=== PATIENT | male | born 1940 | race Caucasian/White ===

== ENCOUNTER 2018-12-19 10:45 | Emergency (ER) | payer MEDICARE ==
[~2018-12-19] VITALS: Ht 175.3 cm; Wt 74.4 kg
[2018-12-19] MEDS ORDERED: MEMA10TA22 (11:52)
[2018-12-19] MEDS ORDERED: DONE10TA41 (11:52)
[2018-12-19] MEDS ORDERED: FLUO20CA25 (11:52)
[2018-12-19] MEDS ORDERED: LOVA40TA2 (11:52)
[2018-12-19 11:54] LABS: ALANINE AMINOTRANSFERASE 12 U/L (0-55); ALKALINE PHOSPHATASE 95 U/L (40-136); BILIRUBIN,TOTAL 0.4 MG/DL (0.1-1.0); BUN/CREATININE RATIO 21; CALCIUM 8.8 MG/DL (8.5-10.1); CARBON DIOXIDE 22 MMOL/L (21-32); CHLORIDE 101 MMOL/L (98-107); CREATININE SERUM 1.07 MG/DL (0.60-1.30); GFR ESTIMATED > 60; GLUCOSE 225 MG/DL (70-105); POTASSIUM 4.4 MMOL/L (3.6-5.0); SODIUM 139 MMOL/L (135-145); TOTAL PROTEIN 7.2 GM/DL (6.4-8.2)
--- NOTE | 2018-12-19 11:54 | Diagnostic Imaging Report ---
PROCEDURE: CT head without contrast. TECHNIQUE: Multiple contiguous axial images were obtained through the brain without the use of intravenous contrast. INDICATION: Lethargy. No prior studies are available for comparison. The ventricles and sulci are prominent consistent with patient's age. No sulcal effacement is identified. 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 No midline shift is seen. No acute intra-axial or extra-axial hemorrhage is identified. Mild generalized periventricular hypodensity is noted consistent with senescent change. The cisterns are patent. The visualized paranasal sinuses are clear. IMPRESSION: Chronic and senescent changes. No acute intracranial process is detected. Dictated by: Dictated on workstation # [id number]
[2018-12-19 11:55] LABS: ALBUMIN 4.1 GM/DL (3.2-4.5)
--- NOTE | 2018-12-19 11:59 | Diagnostic Imaging Report ---
INDICATION: Lethargic. TECHNIQUE: Single-view chest at 11:29 a.m. CORRELATION STUDY: None. FINDINGS: Post sternotomy changes. Cardiac enlargement. Vasculature overall is increased. No definitive consolidating infiltrate. Likely minimal atelectasis in left costophrenic angle. Thoracic spine stimulator leads present. IMPRESSION: 1. Cardiac enlargement and mild vascular congestion present. Post sternotomy changes. Dictated by: Dictated on workstation # [id number]
[2018-12-19] MEDS ORDERED: OSELTAMIVIR 75 MG (TAMIFLU) CAPSULE PO ONE (12:00)
[2018-12-19 12:16] LABS: BASOPHILS % (AUTO) 0 % (0-10); EOSINOPHILS % (AUTO) 2 % (0-10); HEMATOCRIT 40 % (40-54); HEMOGLOBIN 13.2 G/DL (13.3-17.7); LYMPHOCYTES % (AUTO) 3 % (12-44); MEAN CORPUSCULAR HEMOGLOBIN 29 PG (25-34); MEAN CORPUSCULAR HGB CONC 33 G/DL (32-36); MEAN CORPUSCULAR VOLUME 89 FL (80-99); MEAN PLATELET VOLUME 10.5 FL (7.4-10.4); MONOCYTES % (AUTO) 5 % (0-12); NEUTROPHILS % (AUTO) 90 % (42-75); PLATELET COUNT 216 10^3/uL (130-400); RED CELL DISTRIBUTION WIDTH 12.7 % (10.0-14.5); WHITE BLOOD COUNT 12.4 10^3/uL (4.3-11.0)
[2018-12-19 12:17] LABS: EOSINOPHILS # (AUTO) 0.2 10^3/uL (0.0-0.3); LYMPHOCYTES # (AUTO) 0.3 X 10^3 (1.0-4.0); MONOCYTES # (AUTO) 0.7 X 10^3 (0.0-1.0); NEUTROPHILS # (AUTO) 11.1 X 10^3 (1.8-7.8)
[2018-12-19 12:18] LABS: BAND NEUTROPHILS 12 %; EOSINOPHILS % (MANUAL) 1 %; LYMPHOCYTES % (MANUAL) 4 %; MONOCYTES % (MANUAL) 9 %; NEUTROPHILS % (MANUAL) 74 %
[2018-12-19 12:22] LABS: CLARITY,URINE CLEAR; COLOR,URINE YELLOW
[2018-12-19 12:23] LABS: BILIRUBIN,URINE NEGATIVE (NEGATIVE); GLUCOSE, URINE (UA) TRACE (NEGATIVE); KETONES,URINE NEGATIVE (NEGATIVE); LEUKOCYTE ESTERASE ,URINE NEGATIVE (NEGATIVE); NITRITE,URINE NEGATIVE (NEGATIVE); PH,URINE 6.5 (5-9); PROTEIN,URINE 1+ (NEGATIVE); UROBILINOGEN,URINE 0.2 MG/DL (NORMAL)
--- NOTE | 2018-12-19 13:21 | ED Cough/URI ---
General Chief Complaint: Fever-Adult/Adol Stated Complaint: LETHARGY Nursing Triage Note: Pt to ED via EMS. Pt accompanied by . Pt unable to answer questions or follow commands at time of assessment. 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 reports pt has increased confusion and lethargy since yesterday. reports pt began running fever, developed cough and sore throat yesterday. was concerned pt's blood sugar was low so called EMS. EMS reports blood sugar of 186 enroute. Pt does not wear O2 at home. Pt arrived on 4 L NC, O2 sat 97%. Sepsis Screen: Possible Severe Sepsis Risk Source: patient, family Exam Limitations: other (cognitive impairment) History of Present Illness Date Seen by Provider: Dec 19, 2018 Time Seen by Provider: 11:00 Initial Comments 78-year-old male with history of dementia lives at home with spouse who presents with altered mental status increased confusion, generalized weakness and temperature 100.7. Symptom onset been over the past 12 hours. Reports occasional cough, no chills, nausea vomiting, sweats, retractions or wheezes. No abdominal pain, bowel diarrhea. No other acute symptoms or complaints. History is obtained from patient's spouse. History Limited to the patient's memory impairment Timing/Duration: yesterday Severity/Quality: dry cough Prior Episodes/Possible Cause: no prior episodes Modifying Factors: Improves With Rest Associated Symptoms: cough, fever/chills, muscle aches, shortness of breath Allergies and Home Medications Allergies Coded Allergies: No Known Drug Allergies (Unverified , 12/19/18) Patient Home Medication List Home Medication List Reviewed: Yes Review of Systems Review of Systems Constitutional: no symptoms reported EENTM: no symptoms reported Respiratory: no symptoms reported Cardiovascular: no symptoms reported Gastrointestinal: no symptoms reported Genitourinary: no symptoms reported Musculoskeletal: no symptoms reported Skin: no symptoms reported (HPI limited due to dementia) Psychiatric/Neurological: No Symptoms Reported Hematologic/Lymphatic: No Symptoms Reported All Other Systems Reviewed Negative Unless Noted: Yes Past Iukyntx-Oqobhw-Pofnjp Hx Past Med/Social Hx: Reviewed Nursing Past Med/Soc Hx Patient Social History Alcohol Use: Denies Use Recreational Drug Use: No Recent Foreign Travel: No Contact w/Someone Who Travel: No Recent Infectious Disease Expo: No Physical Abuse: No Sexual Abuse: No Past Medical History Surgeries: Yes Gallbladder, Orthopedic Respiratory: No Cardiac: Yes High Cholesterol Neurological: Yes Dementia Genitourinary: No Gastrointestinal: No Musculoskeletal: No Endocrine: Yes Diabetes, Non-Insulin dep Cancer: No Psychosocial: Yes Depression Integumentary: No Blood Disorders: No Physical Exam Vital Signs - First Documented 12/19/18 10:45 Temp 100.7 Pulse 98 Resp 15 B/P (MAP) 144/65 (91) Pulse Ox 98 O2 Delivery Room Air Capillary Refill : Less Than 3 Seconds Height: 5'9.00" Weight: 164lbs. oz. [id number]; BMI Method:Stated General Appearance: no apparent distress HEENT: PERRL/EOMI, normal ENT inspection, TMs normal, pharynx normal Neck: non-tender, supple Respiratory: chest non-tender, lungs clear, normal breath sounds, no respiratory distress Cardiovascular: normal peripheral pulses, regular rate, rhythm, no edema Gastrointestinal: normal bowel sounds Extremities: normal range of motion, normal inspection Neurologic/Psychiatric: signal wirer II-XII nml as tested, no motor/sensory deficits, alert, normal mood/affect, abnormal signal wirer II-XII; No motor weakness, No sensory deficit; disoriented x 3 Skin: normal color Focused Exam Sepsis Stage: Ruled Out Lactate Level 12/19/18 10:50: Lactic Acid Level 1.05 Lactic Acid Level Laboratory Tests Test 12/19/18 10:50 Lactic Acid Level 1.05 MMOL/L (0.50-2.00) Progress/Results/Core Measures Suspected Sepsis Recent Fever Within 48 Hours: Yes Infection Criteria Present: Suspected New Infection New/Unexplained Altered Menta: Yes Sepsis Screen: Possible Severe Sepsis Risk SIRS Temperature:100.7 Pulse: 98 Respiratory Rate: 15 Laboratory Tests 12/19/18 10:50: White Blood Count 12.4H Blood Pressure 144 /65 Mean: 91 12/19/18 10:50: Lactic Acid Level 1.05 Laboratory Tests 12/19/18 10:50: Creatinine 1.07, Platelet Count 216, Total Bilirubin 0.4 Results/Orders Lab Results Laboratory Tests Test 12/19/18 10:50 12/19/18 12:10 Range/Units White Blood Count 12.4 H 4.3-11.0 10^3/uL Red Blood Count 4.53 4.35-5.85 10^6/uL Hemoglobin 13.2 L 13.3-17.7 G/DL Hematocrit 40 40-54 % Mean Corpuscular Volume 89 80-99 FL Mean Corpuscular Hemoglobin 29 25-34 PG Mean Corpuscular Hemoglobin Concent 33 32-36 G/DL Red Cell Distribution Width 12.7 10.0-14.5 % Platelet Count 216 130-400 10^3/uL Mean Platelet Volume 10.5 H 7.4-10.4 FL Neutrophils (%) (Auto) 90 H 42-75 % Lymphocytes (%) (Auto) 3 L 12-44 % Monocytes (%) (Auto) 5 0-12 % Eosinophils (%) (Auto) 2 0-10 % Basophils (%) (Auto) 0 0-10 % Neutrophils # (Auto) 11.1 H 1.8-7.8 X 10^3 Lymphocytes # (Auto) 0.3 L 1.0-4.0 X 10^3 Monocytes # (Auto) 0.7 0.0-1.0 X 10^3 Eosinophils # (Auto) 0.2 0.0-0.3 10^3/uL Basophils # (Auto) 0.0 0.0-0.1 10^3/uL Neutrophils % (Manual) 74 % Lymphocytes % (Manual) 4 % Monocytes % (Manual) 9 % Eosinophils % (Manual) 1 % Band Neutrophils 12 % Sodium Level 139 135-145 MMOL/L Potassium Level 4.4 3.6-5.0 MMOL/L Chloride Level 101 98-107 MMOL/L Carbon Dioxide Level 22 21-32 MMOL/L Anion Gap 16 H 5-14 MMOL/L Blood Urea Nitrogen 23 H 7-18 MG/DL Creatinine 1.07 0.60-1.30 MG/DL Estimat Glomerular Filtration Rate > 60 BUN/Creatinine Ratio 21 Glucose Level 225 H 70-105 MG/DL Lactic Acid Level 1.05 0.50-2.00 MMOL/L Calcium Level 8.8 8.5-10.1 MG/DL Corrected Calcium 8.7 8.5-10.1 MG/DL Total Bilirubin 0.4 0.1-1.0 MG/DL Aspartate Amino Transf (AST/SGOT) 18 5-34 U/L Alanine Aminotransferase (ALT/SGPT) 12 0-55 U/L Alkaline Phosphatase 95 40-136 U/L Total Protein 7.2 6.4-8.2 GM/DL Albumin 4.1 3.2-4.5 GM/DL Urine Color YELLOW Urine Clarity CLEAR Urine pH 6.5 5-9 Urine Specific [place] 1.015 L 1.016-1.022 Urine Protein 1+ H NEGATIVE Urine Glucose (UA) TRACE H NEGATIVE Urine Ketones NEGATIVE NEGATIVE Urine Nitrite NEGATIVE NEGATIVE Urine Bilirubin NEGATIVE NEGATIVE Urine Urobilinogen 0.2 NORMAL MG/DL Urine Leukocyte Esterase NEGATIVE NEGATIVE Urine RBC (Auto) TRACE-I NEGATIVE Micro Results Microbiology 12/19/18 Influenza Types A,B Antigen (ZULEYMA) - Final, Complete My Orders Orders - ALIYAH SHINE DO Cbc With Automated Diff (12/19/18 11:09) Comprehensive Metabolic Panel (12/19/18 11:09) Blood Culture (12/19/18 11:09) Lactic Acid Analyzer (12/19/18 11:09) Chest 1 View Ap/Pa Only (12/19/18 11:09) Influenza A And B Antigens (12/19/18 11:09) Urinalysis Dipstick Only (12/19/18 11:09) Blood Culture (12/19/18 11:10) Glucose (12/19/18 11:09) Accucheck Fasting (12/19/18 11:09) Ct Head Wo (12/19/18 11:09) Oseltamivir 75 Mg Capsule (Tamiflu 75 (12/19/18 12:00) Manual Differential (12/19/18 10:50) Medications Given in ED Current Medications Medications Dose Ordered Sig/Kelvin Route Start Time Stop Time Status Last Admin Dose Admin Oseltamivir Phosphate 75 mg ONCE ONCE PO 12/19/18 12:00 12/19/18 12:01 DC 12/19/18 12:27 75 MG Vital Signs/I&O 12/19/18 10:45 Temp 100.7 Pulse 98 Resp 15 B/P (MAP) 144/65 (91) Pulse Ox 98 O2 Delivery Room Air Capillary Refill : Less Than 3 Seconds Blood Pressure Mean: 91 Progress Note : Time: 13:23 Progress Note Influ A+, no resp compromise tamiflu given. Recommend supportive care and transfer to local hospital for further care. Dr. Delacruz on-call for hospitalist accepts to [facility] ECG Initial ECG Impression Date: Dec 19, 2018 Initial ECG Impression Time: 13:22 Initial ECG Rhythm: Normal Sinus Initial ECG Impression: Normal Departure Impression Primary Impression: Altered mental status, unspecified Additional Impression: Influenza A Disposition: 01 HOME, SELF-CARE Condition: Stable Transfer Time Spoke to Accepting Phy: 13:25 Transfer Progress Notes Patient accepted by Dr. Delacruz Departure-Patient Inst. Referrals: NO,LOCAL PHYSICIAN (PCP) Primary Care Physician ALIYAH SHINE DO Dec 19, 2018 13:21
--- NOTE | 2018-12-19 13:30 | NUR ---
Per Dr Vega, pt was accepted at [facility] in [place], however Dr. Delacruz felt [facility] would be better suited for pt. Pt to be transferred to [facility].
[2018-12-19 14:23] VITALS: BP 131/63
== END 2018-12-19 14:25 | disposition short-term general hospital (02) ==
LOC: ER FS 10:49
DX: R41.82 Altered mental status, unspecified (principal); J10.1 Influenza due to other identified influenza virus with other respiratory manifestations; F03.90 Unspecified dementia, unspecified severity, without behavioral disturbance, psychotic disturbance, mood disturbance, and anxiety; E78.00 Pure hypercholesterolemia, unspecified; E11.9 Type 2 diabetes mellitus without complications; F32.9 Major depressive disorder, single episode, unspecified
CPT/HCPCS: 36415; 70450; 71045; 80053; 81002; 83605; 85007; 85027; 87040; 87804